=== PATIENT | female | born 1995 | race African-American/Black ===

== ENCOUNTER 2025-03-23 18:22 | Emergency (ER) | payer OTHER ==
[~2025-03-23] VITALS: Ht 162.6 cm; Wt 68.0 kg
[2025-03-23] MEDS ORDERED: ORPHENADRINE C100 MG PO (22:22)
[2025-03-23] MEDS ORDERED: NAPROSYN500 MG PO (22:22)
[2025-03-23] MEDS: KETOROLAC TROMETHAMINE 60 MG/2 ML VIAL IM ONE (22:44)
[2025-03-23 22:45] VITALS: PULSE 82; RESP 16; TEMP 98.6; O2SAT 98
== END 2025-03-23 22:48 | disposition home or self-care (01) ==
LOC: ER 19:38
DX: S16.1XXA Strain of muscle, fascia and tendon at neck level, initial encounter (principal); S29.012A Strain of muscle and tendon of back wall of thorax, initial encounter; S39.012A Strain of muscle, fascia and tendon of lower back, initial encounter; S00.83XA Contusion of other part of head, initial encounter; S80.01XA Contusion of right knee, initial encounter; V43.52XA Car driver injured in collision with other type car in traffic accident, initial encounter; Y92.410 Unspecified street and highway as the place of occurrence of the external cause; Z87.891 Personal history of nicotine dependence
CPT/HCPCS: 70450; 70486; 72070; 72100; 72125; 73562; 81025; 99284; J1885